=== PATIENT | male | born 1945 | race Caucasian/White ===

== ENCOUNTER 2019-04-09 20:57 | Emergency (ER) | payer OTHER ==
[~2019-04-09] VITALS: Ht 182.9 cm; Wt 108.9 kg
[2019-04-09 21:02] VITALS: Ht 182.9 cm; Wt 108.9 kg
[2019-04-09 21:32] LABS: BASOPHIL % 0.7 % (0-2); PLATELET COUNT 175 x10^3mcL (130-400)
[2019-04-09 22:01] LABS: CALCIUM 9.4 mg/dL (8.5-10.1); CARBON DIOXIDE 30.3 mmol/L (21-32); CHLORIDE SERUM 102 mmol/L (98-107); CREATININE SERUM 1.3 mg/dL (0.7-1.3); GLUCOSE SERUM 112 mg/dL (74-106); POTASSIUM SERUM 4.9 mmol/L (3.5-5.1); SODIUM SERUM 141 mmol/L (136-145)
[2019-04-09 22:06] LABS: ALBUMIN 4.4 g/dL (3.4-5.0); ALKALINE PHOSPHATASE 94 U/L (46-116); ALT/SGPT 47 U/L (16-63); AST/SGOT 17 U/L (15-37); BILIRUBIN TOTAL 0.9 mg/dL (0.20-1.00); TOTAL PROTEIN, SERUM 8.3 g/dL (6.4-8.2)
[2019-04-10 00:01] VITALS: BP 143/82
== END 2019-04-10 00:01 | disposition home or self-care (01) ==
LOC: ED 20:57
PROVIDERS: Emergency Medicine
DX: J45.909 Unspecified asthma, uncomplicated (principal); J44.9 Chronic obstructive pulmonary disease, unspecified; I10 Essential (primary) hypertension
CPT/HCPCS: 83880; J2930; J7613; J7620; Q0092